=== PATIENT | female | born 1955 | race Caucasian/White ===

== ENCOUNTER → 2016-07-25 | Outpatient (CLI) | payer MEDICARE, OTHER ==
--- NOTE | ~2016-07-25 | PUL ---
PATIENT'S NAME: [facility] AGE: 61 Y [address] ROOM: [place] [id number] LOCATION: [facility] ADMIT DATE: 07/25/2016 Pulmonary DISCHARGE DATE: FAMILY PHYSICIAN: Carmela Chapman MD ATTENDING PHYSICIAN: JAMMIE HANSEN NAME OF PROCEDURE: Pulmonary Function Test DATE OF PROCEDURE: July 25, 2016 TECH: ATripe, [employer] OPERATOR REASON FOR EXAM: Asthma RESULTS: 1. FVC was 2.94 liters which is 91% of predicted and normal, FEV1 was 2.01 liters which is 81% of predicted and normal, and FEV1/FVC was 68% and normal for patient's demographics. After bronchodilator administration FVC decreased to 2.76 liters and FEV1 increased to 2.09 liters which is a 4% increase. FEV1/FVC was 76%. 2. DLCO was 15.3 with an adjusted DLCO of 15 which is 67% of predicted and normal for patient's demographics. 3. Total lung capacity was 4.2 liters which is 86% of predicted and normal, and residual volume was 1.26 liters which is 67% of predicted and normal. PHYSICIAN INTERPRETATION: The patient has no airflow limitation and no significant bronchodilator response. Her diffusion capacity is normal. There is no evidence of restrictive lung disease. MD PIPPA MARIN/reed /[id number] dtt: 07/26/16 1401 , JAMMIE HANSEN dtd: 07/26/16 1109
== END | disposition disaster alternative care site (69) ==
LOC: GRTH 12:51
DX: J45.909 Unspecified asthma, uncomplicated (principal)